=== PATIENT | male | born 1950 | race Caucasian/White ===

== ENCOUNTER 2018-07-14 09:51 | Observation (INO) ==
[2018-07-14] MEDS ORDERED: Oxymetazoline Nasal SPRAY BOTTLE NS ONE (10:27)
--- NOTE | 2018-07-14 10:45 | Emergency Department Note ---
Disposition Clinical Impression: Epistaxis Disposition: Admitted As Inpatient Condition: Good Referrals: Todd cAe DO [Primary Care Provider] - Forms: ED Satisfaction Letter Time of Disposition: 15:28 General Adult HPI - General Chief complaint: ED Epistaxis Stated complaint: epistaxis, "high bp" Time Seen by Provider: 07/14/18 10:01 Source: patient Mode of arrival: ambulatory Limitations: no limitations - History of Present Illness HPI Narrative: This is a 68-year-old male who has a long history of hypertension and who is on 5 antihypertensive medications who comes to emergency department stating that his blood pressure this morning was quite elevated. It normally runs in the 140s systolic and he found it was 203 systolic. He does not know why it would have been so high. About 2 weeks ago he was started on hydralazine, in addition to lisinopril, metoprolol, diltiazem, and hydrochlorothiazide, and states that that there was no improvement in his blood pressure with the added hydralazine. He also states that the diltiazem did not help with his blood pressure when it was added. He noted bleeding from the right nostril, and the bleeding is stopped after placement of tissue. Pain Scale: 0 - Related Data Home Medications Medication Instructions Recorded Confirmed Aspirin [Adult Aspirin] 81 mg PO DAILY 07/14/18 Diltiazem CD (24hr) [Cardizem CD] 240 mg PO DAILY 07/14/18 Hydrochlorothiazide [Microzide] 12.5 mg PO DAILY 07/14/18 Lisinopril [Zestril] 40 mg PO BID 07/14/18 Metoprolol Succinate [Toprol Xl] 100 mg PO DAILY 07/14/18 Potassium Citrate [Urocit-K] 40 meq PO DAILY 07/14/18 hydrALAZINE [HydrALAZINE] 25 mg PO BID 07/14/18 Allergies Allergy/AdvReac Type Severity Reaction Status Date / Time No Known Allergies Allergy Verified 07/14/18 10:45 All systems ED: reviewed and negative except as stated. Constitutional: Reports: other ENT ED: Reports: epistaxis Physical Exam - General Limitations: no limitations General appearance: alert, in no apparent distress - Head Head exam: atraumatic, normocephalic, normal inspection - ENT ENT exam: other (There is dried blood and moist tissue in the right naris) - Chest Chest inspection: Present: normal inspection, symmetric chest wall rise - Respiratory Respiratory exam: Present: normal lung sounds bilaterally - Cardiovascular Cardiovascular exam: Present: regular rate, normal rhythm, normal heart sounds - Abdominal Exam Abdominal exam: Present: soft, Non-Tender. Absent: tenderness, distention, guarding, rebound, rigidity - Extremities Exam Extremities exam: Present: normal inspection, full ROM. Absent: tenderness, pedal edema - Neurological Exam Neurological exam: Present: alert, oriented X3 - Psychiatric Psychiatric exam: Present: normal affect, normal mood - Skin Skin exam: Present: warm, dry, intact, normal color Course Course Narrative: This is a 68-year-old male who was interested in input about hypertension who may also have a continuing epistaxis on the right. Vital Signs Temperature 97.9 F 07/14/18 09:56 Pulse Rate 62 07/14/18 09:56 Respiratory Rate 18 07/14/18 09:56 Blood Pressure 196/98 07/14/18 09:56 O2 Sat by Pulse Oximetry 99 07/14/18 09:56 Temperature 97.9 F 07/14/18 10:48 Pulse Rate 52 07/14/18 12:56 Respiratory Rate 20 07/14/18 12:56 Blood Pressure 148/74 07/14/18 12:56 O2 Sat by Pulse Oximetry 100 07/14/18 12:56 Oxygen Delivery Oxygen Delivery Room Air Procedures - Epistaxis Control Consent Obtained: verbal consent Time Out Performed: Yes Nostril: left, bilateral Nose Prepped With: oxymetazoline Direct Inspection: unable to visualize Clots Removed by: blowing nose Cautery Used: silver nitrate Device Inserted: nasal tampon (1.5 cm bilateral) Patient Tolerated Procedure: well Medical Decision Making - [facility] Narrative Medical decision making narrative: This is a 68-year-old male who required bilateral nasal packing, an terior/posterior, for resolution of epistaxis. I discussed his case with Dr. Spnecer, who recommended admission to the hospitalist service and stated that she would see the patient on the floor. I discussed his case with the on-call hospitalist, who accepted him for admission. - Lab Data Result diagrams: 07/14/18 14:08 07/14/18 14:08 Lab Results 07/14/18 07/14/18 Range/Units 14:08 14:08 WBC 6.5 (4.3-11.1) K/mcL RBC 5.44 (4.19-5.50) M/mcL Hgb 15.8 (12.9-16.9) g/dL Hct 46.8 (37.5-50.1) % MCV 86.0 (83.0-100.0) fL MCH 29.0 (28.0-33.3) pg MCHC 33.8 (31.6-35.5) g/dL RDW 13.1 (11.5-14.5) % Plt Count 214 (140-400) K/mcL MPV 9.9 (9.4-12.4) fL Immature Gran % 0.0 (0-4) % Seg Neutrophils % 56.4 % Lymphocytes % 33.0 % Monocytes % 8.1 % Eosinophils % 1.7 % Basophils % 0.8 % Neutrophils # 3.7 (1.6-8.9) K/mcL Lymphocytes # 2.2 (0.6-4.6) K/mcL Monocytes # 0.5 (0.0-1.3) K/mcL Eosinophils # 0.1 (0.0-0.6) K/mcL Basophils # 0.1 (0.0-0.2) K/mcL Sodium 141 (136-145) mEq/L Potassium 3.7 (3.5-5.1) mEq/L Chloride 103 (98-107) mEq/L Carbon Dioxide 32 H (23-29) mEq/L BUN 14 (8-23) mg/dL Creatinine 0.97 (0.70-1.30) mg/dL Est GFR ( Amer) > 60 (> 60) Est GFR (Non-Af Amer) > 60 (> 60) BUN/Creatinine Ratio 14 (6-26) Glucose 113 H (70-105) mg/dL Calculated Osmolality 293 (280-300) Calcium 9.3 (8.6-10.3) mg/dL Critical Care Time Critical Care Time: No
[2018-07-14] MEDS ORDERED: Silver Nitrate Applicator 1 STICK..EA. TP ONE (12:03)
[2018-07-14 14:39] LABS: Basophils # 0.1 K/mcL (0.0-0.2); Basophils % 0.8 %; Eosinophils # 0.1 K/mcL (0.0-0.6); Eosinophils % 1.7 %; Hematocrit 46.8 % (37.5-50.1); Hemoglobin 15.8 g/dL (12.9-16.9); Lymphocytes # 2.2 K/mcL (0.6-4.6); Mean Corpuscular HGB Conc 33.8 g/dL (31.6-35.5); Mean Platelet Volume 9.9 fL (9.4-12.4); Monocytes # 0.5 K/mcL (0.0-1.3); Monocytes % 8.1 %; Neutrophils # 3.7 K/mcL (1.6-8.9); Platelet Count 214 K/mcL (140-400); Red Blood Count 5.44 M/mcL (4.19-5.50); Red Cell Distribution Width 13.1 % (11.5-14.5); Segmented Neutrophils % 56.4 %
[2018-07-14 14:41] LABS: BUN/Creatinine Ratio 14 (6-26); Blood Urea Nitrogen 14 mg/dL (8-23); Calcium 9.3 mg/dL (8.6-10.3); Carbon Dioxide 32 mEq/L (23-29); Chloride 103 mEq/L (98-107); Glucose 113 mg/dL (70-105); Osmolality,Calculated 293 (280-300); Potassium 3.7 mEq/L (3.5-5.1); Sodium 141 mEq/L (136-145); eGFR For Non-African Americans > 60 (> 60)
--- NOTE | 2018-07-14 15:54 | Internal Med History&Physical ---
Date of Encounter: 07/14/18 Time of Encounter: 15:51 Internal Medicine - H&P: HPI Chief complaint: Nosebleed Admitted From: Home Plans for Post Hospital Care: Home History of present illness: Mr. Bell is a 68 year old male with history of hypertension presented to the emergency department with complaint of nosebleed. As per patient he took a shower this morning and was putting on his clothes where he developed nose bleeding. The bleeding is continues. He denies clots associated with the bleeding and at first it was from the right right knee are however the left one started to bleed shortly after presentation to the emergency department. He denies being on any blood thinners but does take aspirin 81 mg daily. Has had one episode of epistaxis similar to this one 8 years ago which required specialized packing by ear nose and throat doctors. He reports that his bleeding is much less than what he had 8 years ago. He denies any facial trauma and cannot recall alleviating or aggravating factors. The bleeding started spontaneously and was not associated with any factors. She denies fever, chills, palpitations, shortness of breath, nausea, vomiting, diarrhea, leg swelling, calf tenderness, heat or cold intolerance, LOC, syncope, headache, vision changes, loss of function in her extremities, PND or orthopnea. While in the emergency department he required bilateral nasal packing. Dr. Kiah zamorano with ENT was consulted by the ED physician and recommended admission and will provide further recommendations. Past Med Surg Social Fam HX - Past Medical History Medical history: hypertension Psychiatric history: no psych history - Social History Smoking Status: Former smoker Smokeless Tobacco Status: No Alcohol use: occasionally Drug use: none Internal Medicine - H&P: Meds Aspirin [Adult Aspirin] 81 mg PO DAILY 07/14/18 [History] Diltiazem CD (24hr) [Cardizem CD] 240 mg PO DAILY 07/14/18 [History] Hydrochlorothiazide [Microzide] 12.5 mg PO DAILY 07/14/18 [History] Lisinopril [Zestril] 40 mg PO BID 07/14/18 [History] Metoprolol Succinate [Toprol Xl] 100 mg PO DAILY 07/14/18 [History] Potassium Citrate [Urocit-K] 40 meq PO DAILY 07/14/18 [History] hydrALAZINE [HydrALAZINE] 25 mg PO BID 07/14/18 [History] Allergy/AdvReac Type Severity Reaction Status Date / Time No Known Allergies Allergy Verified 07/14/18 10:45 All Systems PM: A 10-system review of systems was performed and is negative for pertinent findings except as documented above in the HPI. - Constitutional Vitals: Temp Pulse Resp BP Pulse Ox 97.9 F 54 20 136/117 98 07/14/18 10:48 07/14/18 15:43 07/14/18 15:43 07/14/18 15:43 07/14/18 15:43 Exam: General: Patient is alert, oriented, in mild distress, can speak in full sentences Head: atraumatic, normocephalic, Eye: normal appearance, PERRL, no scleral icterus, no conjunctival injection ENT: Bilateral nasal packing that are bloodstained with bright red blood. No clots in visualized throat Neck: normal inspection, trachea midline, full ROM, no carotid bruits Chest: normal inspection, symmetric chest rise Respiratory: Good respiratory effort. Bilateral breath sounds are clear without wheezing, crackles, or rhonchi. Cardiovascular: Regular rate and rhythm. s1 and s2 No clicks, rubs, gallops, or murmors. Abdomen: Bowel sounds present normoactive x-4 quadrants. Abdomen is soft, nondistended. no Epigastric tenderness. No guarding or rebound. No o rganomegaly noted, obese musculoskeletal: Spontaneously moving all extremities. no edema, no calf te nderness Skin: warm, dry, intact. Neuro: Alert and oriented x4. Sensation light touch intact. Cranial nerves 2- 12 is intact. No focal deficits Psych: Patient's affect is normal Internal Med - H&P Results - Labs CBC & Chem 7: 07/14/18 14:08 07/14/18 14:08 Labs: Short CBC 07/14/18 Range/Units 14:08 WBC 6.5 (4.3-11.1) K/mcL Hgb 15.8 (12.9-16.9) g/dL Hct 46.8 (37.5-50.1) % Plt Count 214 (140-400) K/mcL Neutrophils # 3.7 (1.6-8.9) K/mcL BMP 07/14/18 14:08 Sodium 141 Potassium 3.7 Chloride 103 Carbon Dioxide 32 H BUN 14 Creatinine 0.97 Glucose 113 H Calcium 9.3 - Assessment and plan (1) Epistaxis Current Visit: Yes Status: Acute Assessment and plan: Bilateral epistaxis which was packed in the emergency department- Afrin was given. ENT was consulted by the ED physician will follow recommendations Will get CT head without contrast now Follow CBC every 8 hours and transfuse below 7 I discussed with the patient that if he does develop increase in bleeding airway might get compromised and he agrees with intubation if he cannot protect his airway Avoid antiplatelets, anticoagulations, NSAIDs Type and cross stat (2) Hypertension Current Visit: Yes Status: Acute Assessment and plan: On cardizem and metoprolol for hypertension and is currently bradycardic- will discontinue continue with HCTZ, will change metoprolol to coreg continue with lisinopril consider amlodipine if still not controlled Qualifiers: Hypertension type: essential hypertension Qualified Code(s): I10 - Essential (primary) hypertension (3) Obese Current Visit: Yes Status: Acute Assessment and plan: nutrition consult BMI 38.5 Qualifiers: Obesity type: unspecified obesity type Body mass index: BMI 38.0-38.9 Qualified Code(s): E66.9 - Obesity, unspecified; Z68.38 - Body mass index (BMI) 38.0-38.9, adult (4) DVT prophylaxis Current Visit: Yes Status: Acute Assessment and plan: scds - Time Spent With Patient Total time spent is greater than 50% in coordination of care (as documented) at patient's floor/unit and/or counseling patient:
[2018-07-14] MEDS ORDERED: Naloxone 0.4 MG/ML INJ IVP PRN (16:12)
[2018-07-14 17:00] LABS: Basophils # 0.1 K/mcL (0.0-0.2); Basophils % 0.7 %; Eosinophils # 0.1 K/mcL (0.0-0.6); Hemoglobin 15.7 g/dL (12.9-16.9); Immature Granulocytes % 0.1 % (0-4); Lymphocytes # 1.7 K/mcL (0.6-4.6); Lymphocytes % 23.3 %; Mean Corpuscular HGB Conc 33.4 g/dL (31.6-35.5); Mean Corpuscular Hemoglobin 28.7 pg (28.0-33.3); Mean Corpuscular Volume 85.9 fL (83.0-100.0); Mean Platelet Volume 9.9 fL (9.4-12.4); Monocytes # 0.5 K/mcL (0.0-1.3); Monocytes % 6.5 %; Neutrophils # 4.9 K/mcL (1.6-8.9); Platelet Count 214 K/mcL (140-400); Red Blood Count 5.47 M/mcL (4.19-5.50); Segmented Neutrophils % 68.4 %
--- NOTE | 2018-07-14 17:17 | ENT - Consult Note ---
<Nithya Choi - Last Filed: 07/14/18 18:24> Date of Encounter: 07/14/18 Time of Encounter: 17:10 Assessment and Plan (1) Epistaxis Current Visit: Yes Status: Acute Patient seen and examined by this provider and Dr. Rai ENT physician. Patient with bilateral rapid rhino rocket nasal packing in place. Very subtle oozing noted around anterior portion of packing in right nare. Right nasal pack was repositioned and balloon was filled with saline solution. Left nasal pack was removed. No areas of active bleeding noted to left nare after packing removal. No bleeding or clots were noted to the oropharynx after reposition of right pack and removal of left. Right nasal packing to remain in place for 72 hours. Recommend patient to start oral antibiotic due to packing placement. Patient's episode of epistaxis likely related to elevated blood pressure. will reassess patient tomorrow at bedside. All questions answered. (2) Hypertension Current Visit: Yes Status: Acute Recommend optimization and control of BP to aid in decreasing episodes of epistaxis. Qualifiers: Hypertension type: essential hypertension Qualified Code(s): I10 - Essential (primary) hypertension History of Present Illness Consult date: 07/14/18 Reason for ENT Consult: epistaxis Requesting physician: Tyson Snow History of present illness: Patient is 68-year-old male with past medical history of hypertension, who presented to ED today with complaint of nosebleed. Patient reports bleeding from right Nare began this morning after patient had showered. Patient reports the episode of epistaxis continued until he was seen and packing placed in the ED. He denies any oral anti-coagulation, but does report that he currently takes aspirin 81 mg daily. Has had one episode of epistaxis similar to this one 8 years ago which required nasal packing. He denies any facial trauma and cannot recall alleviating or aggravating factors. However, does report recently elevated blood pressures with systolics ranging from 180-200. Past Med Surg Social Fam HX - Past Medical History Medical history: hypertension Psychiatric history: no psych history - Social History Smoking Status: Former smoker Smokeless Tobacco Status: No Alcohol use: occasionally Drug use: none Medications and Allergies Aspirin [Adult Aspirin] 81 mg PO DAILY 07/14/18 [History] Diltiazem CD (24hr) [Cardizem CD] 240 mg PO DAILY 07/14/18 [History] Hydrochlorothiazide [Microzide] 12.5 mg PO DAILY 07/14/18 [History] Lisinopril [Zestril] 40 mg PO BID 07/14/18 [History] Metoprolol Succinate [Toprol Xl] 100 mg PO DAILY 07/14/18 [History] Potassium Citrate [Urocit-K] 40 meq PO DAILY 07/14/18 [History] hydrALAZINE [HydrALAZINE] 25 mg PO BID 07/14/18 [History] Allergy/AdvReac Type Severity Reaction Status Date / Time No Known Allergies Allergy Verified 07/14/18 10:45 ENT - ROS - EENT Nose, mouth and throat: epistaxis ENT Exam Initial Vital Signs Temp Pulse Resp BP Pulse Ox 97.9 F 62 18 196/98 99 07/14/18 09:56 07/14/18 09:56 07/14/18 09:56 07/14/18 09:56 07/14/18 09:56 - General physical appearance well developed, well nourished, no distress - Eyes PERRL, normal ocular movement - ENT CN 2-12 grossly intact, Other (EARS: EACs clear bilaterally. TMs normal bilaterally. Oral: Teeth in good repair, tongue midline, uvula midline, no acti ve bleeding or clots noted to oropharynx after intervention. NOSE: Bilateral Rhino Rocket nasal packing in place with inflated balloons. Left packing removed. Left Nare without active bleeding or oozing noted. Right nasal packing with slight amount of oozing around anterior portion of the pack which stopped after repositioning pack. ) - Neck no masses, trachea midline, no lymphadectomy - Respiratory normal expansion, normal respiratory effort - Neurologic CN 2-12 grossly intact, normal coordination, normal sensation - Psychiatric oriented to time, oriented to person, oriented to place Exam Initial Vital Signs Temp Pulse Resp BP Pulse Ox 97.9 F 62 18 196/98 99 07/14/18 09:56 07/14/18 09:56 07/14/18 09:56 07/14/18 09:56 07/14/18 09:56 Results - Labs 07/14/18 16:39 07/14/18 14:08 Abnormal lab results Carbon Dioxide 32 mEq/L (23-29) H 07/14/18 14:08 Glucose 113 mg/dL (70-105) H 07/14/18 14:08 Diabetes panel 07/14/18 Range/Units 14:08 Sodium 141 (136-145) mEq/L Potassium 3.7 (3.5-5.1) mEq/L Chloride 103 (98-107) mEq/L Carbon Dioxide 32 H (23-29) mEq/L BUN 14 (8-23) mg/dL Creatinine 0.97 (0.70-1.30) mg/dL Glucose 113 H (70-105) mg/dL Calcium 9.3 (8.6-10.3) mg/dL Calcium panel 07/14/18 Range/Units 14:08 Calcium 9.3 (8.6-10.3) mg/dL Pituitary panel 07/14/18 Range/Units 14:08 Sodium 141 (136-145) mEq/L Potassium 3.7 (3.5-5.1) mEq/L Chloride 103 (98-107) mEq/L Carbon Dioxide 32 H (23-29) mEq/L BUN 14 (8-23) mg/dL Creatinine 0.97 (0.70-1.30) mg/dL Glucose 113 H (70-105) mg/dL Calcium 9.3 (8.6-10.3) mg/dL Adrenal panel 07/14/18 Range/Units 14:08 Sodium 141 (136-145) mEq/L Potassium 3.7 (3.5-5.1) mEq/L Chloride 103 (98-107) mEq/L Carbon Dioxide 32 H (23-29) mEq/L BUN 14 (8-23) mg/dL Creatinine 0.97 (0.70-1.30) mg/dL Glucose 113 H (70-105) mg/dL Calcium 9.3 (8.6-10.3) mg/dL All other labs normal. Consult Discharge Plan - Plan Referrals: Todd Ace DO [Primary Care Provider] - <Zakiya Rai - Last Filed: 07/15/18 11:15> Date of Encounter: 07/15/18 Assessment and Plan (1) Epistaxis Current Visit: Yes Status: Acute (2) Hypertension Current Visit: Yes Status: Acute Qualifiers: Hypertension type: essential hypertension Qualified Code(s): I10 - Essential (primary) hypertension (3) Hypertensive urgency Current Visit: Yes Status: Acute Recommend continued optimization of the patient's blood pressure by the primary team. If his blood pressures controlled and he does not have any significant bleeding patient may be discharged home with balloon in place to follow up to have bleeding and removed Saturday (4) Acute posterior epistaxis Current Visit: Yes Status: Acute Patient with acute posterior epistaxis on the right side related to his hypertensive episode. Patient did have one episode similar to this about 8 years ago. Balloon was placed in the ED which required readjustment on the floor by myself to help manage the bleeding. We were able to remove the balloon from the left side and only leave the balloon in the right and increase the amount of fluid within the right balloon. Patient with hypertensive urgency as he became very symptomatic from his hypertensive episode where his systolic blood pressure was in the 200s and diastolic in the 100s. Patient will continue to bleed around any packing that was placed in the nose if this is not well controlled. It is very important to improve his blood pressure to stop any bleeding. Nasal packing needs to be in place for at least 72 hours after significant bleeding has stopped. If patient continues to bleed around the packing even know his blood pressure stabilized, he may need to go to the operating room for further evaluation endoscopic control of the bleeding but this is unlikely if his blood pressure is controlled and remained stable. ENT Exam Initial Vital Signs Temp Pulse Resp BP Pulse Ox 97.9 F 62 18 196/98 99 07/14/18 09:56 07/14/18 09:56 07/14/18 09:56 07/14/18 09:56 07/14/18 09:56 Exam Initial Vital Signs Temp Pulse Resp BP Pulse Ox 97.9 F 62 18 196/98 99 07/14/18 09:56 07/14/18 09:56 07/14/18 09:56 07/14/18 09:56 07/14/18 09:56 Results - Labs 07/15/18 05:45 07/15/18 05:45 Abnormal lab results PT 12.7 Seconds (9.4-12.1) H 07/15/18 05:45 Potassium 3.1 mEq/L (3.5-5.1) L 07/15/18 05:45 Glucose 141 mg/dL (70-105) H 07/15/18 05:45 Total Bilirubin 1.3 mg/dL (0.3-1.0) H 07/15/18 05:45 Diabetes panel 07/14/18 07/15/18 Range/Units 14:08 05:45 Sodium 141 138 (136-145) mEq/L Potassium 3.7 3.1 L (3.5-5.1) mEq/L Chloride 103 103 (98-107) mEq/L Carbon Dioxide 32 H 26 (23-29) mEq/L BUN 14 13 (8-23) mg/dL Creatinine 0.97 0.81 (0.70-1.30) mg/dL Glucose 113 H 141 H (70-105) mg/dL Calcium 9.3 8.9 (8.6-10.3) mg/dL AST 16 (13-39) Units/L ALT 17 (7-52) Units/L Alkaline Phosphatase 75 (34-104) Units/L Albumin 4.2 (3.5-5.7) g/dL Calcium panel 07/14/18 07/15/18 Range/Units 14:08 05:45 Calcium 9.3 8.9 (8.6-10.3) mg/dL Albumin 4.2 (3.5-5.7) g/dL Pituitary panel 07/14/18 07/15/18 Range/Units 14:08 05:45 Sodium 141 138 (136-145) mEq/L Potassium 3.7 3.1 L (3.5-5.1) mEq/L Chloride 103 103 (98-107) mEq/L Carbon Dioxide 32 H 26 (23-29) mEq/L BUN 14 13 (8-23) mg/dL Creatinine 0.97 0.81 (0.70-1.30) mg/dL Glucose 113 H 141 H (70-105) mg/dL Calcium 9.3 8.9 (8.6-10.3) mg/dL Adrenal panel 07/14/18 07/15/18 Range/Units 14:08 05:45 Sodium 141 138 (136-145) mEq/L Potassium 3.7 3.1 L (3.5-5.1) mEq/L Chloride 103 103 (98-107) mEq/L Carbon Dioxide 32 H 26 (23-29) mEq/L BUN 14 13 (8-23) mg/dL Creatinine 0.97 0.81 (0.70-1.30) mg/dL Glucose 113 H 141 H (70-105) mg/dL Calcium 9.3 8.9 (8.6-10.3) mg/dL Total Bilirubin 1.3 H (0.3-1.0) mg/dL AST 16 (13-39) Units/L ALT 17 (7-52) Units/L Alkaline Phosphatase 75 (34-104) Units/L Albumin 4.2 (3.5-5.7) g/dL All other labs normal. - Attending Attestation The history, physical exam, and medical decision making was performed by myself in conjunction with the nurse practioner who saw the patient at the bedside. I was physically present and actively performed the examination and medical decision making. I have verified the accuracy of the Nurse practioners documentation with regards to communicating my history, physical exam findings, and medical decision making.
[2018-07-14] MEDS ORDERED: amLODIPine 5 MG TABLET PO ONE (20:30)
[2018-07-14] MEDS ORDERED: Acetaminophen IV 1,000 MG/100 ML INFUS..BTL IVPB ONE (23:53)
[2018-07-15] MEDS ORDERED: *HR* LORazepam 2 MG/ML VIAL IVP ONE (00:45)
[2018-07-15] MEDS: Ampicillin/Sulbactam 3,000 MG in 0.9 % Sodium Chloride Mini Bag 100 ML IVPB SCH ×3 (05:49→13:45)
[2018-07-15] MEDS ORDERED: Acetaminophen 325 MG TABLET PO PRN (06:01)
[2018-07-15 06:02] LABS: Hematocrit 44.1 % (37.5-50.1); Hemoglobin 15.3 g/dL (12.9-16.9); Mean Corpuscular HGB Conc 34.7 g/dL (31.6-35.5); Mean Corpuscular Hemoglobin 29.6 pg (28.0-33.3); Mean Corpuscular Volume 85.3 fL (83.0-100.0); Platelet Count 223 K/mcL (140-400); Red Blood Count 5.17 M/mcL (4.19-5.50); Red Cell Distribution Width 13.1 % (11.5-14.5)
[2018-07-15 06:09] LABS: INR 1.1; Prothrombin Time 12.7 Seconds (9.4-12.1)
[2018-07-15 06:22] LABS: Alanine Aminotransferase 17 Units/L (7-52); Albumin 4.2 g/dL (3.5-5.7); Albumin/Globulin Ratio 1.5 (1.1-2.2); Alkaline Phosphatase 75 Units/L (34-104); Aspartate Amino Transferase 16 Units/L (13-39); BUN/Creatinine Ratio 16 (6-26); Bilirubin,Total 1.3 mg/dL (0.3-1.0); Blood Urea Nitrogen 13 mg/dL (8-23); Calcium 8.9 mg/dL (8.6-10.3); Carbon Dioxide 26 mEq/L (23-29); Chloride 103 mEq/L (98-107); Globulin 2.8 g/dL (2.4-3.5); Glucose 141 mg/dL (70-105); Osmolality,Calculated 288 (280-300); Potassium 3.1 mEq/L (3.5-5.1); Sodium 138 mEq/L (136-145); eGFR For Non-African Americans > 60 (> 60)
[2018-07-15] MEDS: *HR* HYDROcodone/Acet 7.5/325 mg TABLET PO PRN ×3 (06:49→22:45)
[2018-07-15] MEDS ORDERED: hydroCHLOROthiazide 25 MG TABLET PO SCH (09:00)
[2018-07-15] MEDS: Furosemide 40 MG TABLET PO SCH (09:22)
[2018-07-15] MEDS: Lisinopril 20 MG TABLET PO SCH (09:22)
--- NOTE | 2018-07-15 11:29 | ENT - Progress Note ---
Date of Encounter: 07/15/18 Time of Encounter: 11:29 - Assessment and Plan (1) Epistaxis Current Visit: Yes Status: Acute Patient seen and examined at bedside today. Patient denies any further episodes of bleeding since repositioning of nasal packing last night. Patient with no active bleeding or oozing noted today. Nasal packing to remain in place for 72 hours after initial time of placement. Patient may be transitioned to oral antibiotic for prophylaxis due to packing placement at this time. If patient meets criteria for discharge from primary care team perspective patient may follow up outpatient in ENT office for packing removal. All questions answered. (2) Hypertension Current Visit: Yes Status: Acute Recommend optimization of blood pressure to aid in decreasing nasal bleeds. Qualifiers: Hypertension type: essential hypertension Qualified Code(s): I10 - Essential (primary) hypertension Subjective Patient reports: no new complaints, other (Patient denies any further episodes of bleeding) Objective Initial Vital Signs Temp Pulse Resp BP Pulse Ox 97.9 F 62 18 196/98 99 07/14/18 09:56 07/14/18 09:56 07/14/18 09:56 07/14/18 09:56 07/14/18 09:56 - General physical appearance well developed, well nourished, no distress - Eyes PERRL, normal ocular movement - ENT CN 2-12 grossly intact, Other (Nose: Rapid Rhino rocket nasal packing in place in right Nare with balloon inflated, no bleeding or oozing around nasal packing noted. Left Nare without active bleeding or oozing. Oropharynx: Small amount of dried blood noted to posterior oropharynx, no active bleeding or blood clots noted.) - Neck no masses, trachea midline, no lymphadectomy - Respiratory normal expansion, normal respiratory effort - Labs 07/15/18 05:45 07/15/18 05:45 Diabetes panel 07/14/18 07/15/18 Range/Units 14:08 05:45 Sodium 141 138 (136-145) mEq/L Potassium 3.7 3.1 L (3.5-5.1) mEq/L Chloride 103 103 (98-107) mEq/L Carbon Dioxide 32 H 26 (23-29) mEq/L BUN 14 13 (8-23) mg/dL Creatinine 0.97 0.81 (0.70-1.30) mg/dL Glucose 113 H 141 H (70-105) mg/dL Calcium 9.3 8.9 (8.6-10.3) mg/dL AST 16 (13-39) Units/L ALT 17 (7-52) Units/L Alkaline Phosphatase 75 (34-104) Units/L Albumin 4.2 (3.5-5.7) g/dL Calcium panel 07/14/18 07/15/18 Range/Units 14:08 05:45 Calcium 9.3 8.9 (8.6-10.3) mg/dL Albumin 4.2 (3.5-5.7) g/dL Pituitary panel 07/14/18 07/15/18 Range/Units 14:08 05:45 Sodium 141 138 (136-145) mEq/L Potassium 3.7 3.1 L (3.5-5.1) mEq/L Chloride 103 103 (98-107) mEq/L Carbon Dioxide 32 H 26 (23-29) mEq/L BUN 14 13 (8-23) mg/dL Creatinine 0.97 0.81 (0.70-1.30) mg/dL Glucose 113 H 141 H (70-105) mg/dL Calcium 9.3 8.9 (8.6-10.3) mg/dL Adrenal panel 07/14/18 07/15/18 Range/Units 14:08 05:45 Sodium 141 138 (136-145) mEq/L Potassium 3.7 3.1 L (3.5-5.1) mEq/L Chloride 103 103 (98-107) mEq/L Carbon Dioxide 32 H 26 (23-29) mEq/L BUN 14 13 (8-23) mg/dL Creatinine 0.97 0.81 (0.70-1.30) mg/dL Glucose 113 H 141 H (70-105) mg/dL Calcium 9.3 8.9 (8.6-10.3) mg/dL Total Bilirubin 1.3 H (0.3-1.0) mg/dL AST 16 (13-39) Units/L ALT 17 (7-52) Units/L Alkaline Phosphatase 75 (34-104) Units/L Albumin 4.2 (3.5-5.7) g/dL Consult Discharge Plan - Plan Referrals: Todd Ace DO [Primary Care Provider] -
--- NOTE | 2018-07-15 14:36 | Internal Med Progress Note ---
Hospitalist Progress Note - Encounter Date of Encounter: 07/15/18 Time of Encounter: 08:00 - Subjective Interval History: arlen was seen and examined at bedside reports that he believe that the bleeding has stopped. has no complaints at this time, tolerating PO diet. all questions answered she denies fever, chills, CP, SOB, cough, palpitations, N/v/D - Exam Vitals: Temp Pulse Resp BP Pulse Ox 98.4 F 61 15 167/88 96 07/15/18 07:11 07/15/18 08:06 07/15/18 08:06 07/15/18 08:06 07/15/18 08:06 Exam: General: Patient is alert, oriented, in mild distress, can speak in full sentences Head: atraumatic, normocephalic, Eye: normal appearance, PERRL, no scleral icterus, no conjunctival injection ENT: Bilateral nasal packing that are bloodstained with bright red blood. No clots in visualized throat Neck: normal inspection, trachea midline, full ROM, no carotid bruits Chest: normal inspection, symmetric chest rise Respiratory: Good respiratory effort. Bilateral breath sounds are clear without wheezing, crackles, or rhonchi. Cardiovascular: Regular rate and rhythm. s1 and s2 No clicks, rubs, gallops, or murmors. Abdomen: Bowel sounds present normoactive x-4 quadrants. Abdomen is soft, nondistended. no Epigastric tenderness. No guarding or rebound. No organomegaly noted, obese musculoskeletal: Spontaneously moving all extremities. no edema, no calf tenderness Skin: warm, dry, intact. Neuro: Alert and oriented x4. Sensation light touch intact. Cranial nerves 2- 12 is intact. No focal deficits Psych: Patient's affect is normal - Assessment and Plan (1) Epistaxis Current Visit: Yes Status: Acute Assessment and Plan: Bilateral epistaxis which was packed in the emergency department- Afrin was given. Most likely secondary to uncontrolled blood pressure ENT was consulted by the ED physician recommendations appreciated CBC followed and stable continue to monitor H&H Avoid antiplatelets, anticoagulations, NSAIDs On Augmentin by mouth (2) Hypertension Current Visit: Yes Status: Acute Assessment and Plan: was On cardizem and metoprolol for hypertension and is currently bradycardic- will discontinue HCTZ changed to lasix 40 mg daily on lisinopril 40 mg daily contue with coreg 6.25 BID on amlodipine 10 mg daily will follow BP and continue to adjust BP medications (3) Obese Current Visit: Yes Status: Acute Assessment and Plan: nutrition consult BMI 38.5 (4) DVT prophylaxis Current Visit: Yes Status: Acute Assessment and Plan: scds - Time Spent with Patient Total time spent is greater than 50% in coordination of care (as documented) at patient's floor/unit and/or counseling patient: Internal Medicine: Result - Labs CBC & Chem 7: 07/15/18 05:45 07/15/18 05:45 Labs: Short CBC 07/14/18 07/14/18 07/15/18 Range/Units 14:08 16:39 05:45 WBC 6.5 7.2 7.4 (4.3-11.1) K/mcL Hgb 15.8 15.7 15.3 (12.9-16.9) g/dL Hct 46.8 47.0 44.1 (37.5-50.1) % Plt Count 214 214 223 (140-400) K/mcL Neutrophils # 3.7 4.9 (1.6-8.9) K/mcL BMP 07/14/18 07/15/18 14:08 05:45 Sodium 141 138 Potassium 3.7 3.1 L Chloride 103 103 Carbon Dioxide 32 H 26 BUN 14 13 Creatinine 0.97 0.81 Glucose 113 H 141 H Calcium 9.3 8.9 Liver Function 07/15/18 Range/Units 05:45 Total Bilirubin 1.3 H (0.3-1.0) mg/dL AST 16 (13-39) Units/L ALT 17 (7-52) Units/L Alkaline Phosphatase 75 (34-104) Units/L Albumin 4.2 (3.5-5.7) g/dL - ABG Interpretation ABG results: PT/INR, D-dimer PT 12.7 Seconds (9.4-12.1) H 07/15/18 05:45 - Impressions Impressions Head CT 07/14/18 16:55 IMPRESSION: No acute intracranial abnormality. Diffuse atrophic changes with findings suggesting chronic microvascular ischemia Fluid in the right maxillary sinus D/ / Phoenix Lemus MD / Phoenix Lemus MD Interpreting Provider: Phoenix Lemus MD Consult Discharge Plan - Plan Referrals: Todd Aec DO [Primary Care Provider] - (2) Hypertension Qualifiers: Hypertension type: essential hypertension Qualified Code(s): I10 - Essential (primary) hypertension (3) Obese Qualifiers: Obesity type: unspecified obesity type Body mass index: BMI 38.0-38.9 Qualified Code(s): E66.9 - Obesity, unspecified; Z68.38 - Body mass index (BMI) 38.0-38.9, adult
[2018-07-15] MEDS ORDERED: amLODIPine 5 MG TABLET PO ONE (18:04)
[2018-07-16 06:27] LABS: Basophils # 0.1 K/mcL (0.0-0.2); Basophils % 0.6 %; Eosinophils # 0.1 K/mcL (0.0-0.6); Eosinophils % 1.1 %; Hematocrit 43.6 % (37.5-50.1); Immature Granulocytes % 0.2 % (0-4); Lymphocytes # 2.2 K/mcL (0.6-4.6); Lymphocytes % 26.7 %; Mean Corpuscular HGB Conc 34.4 g/dL (31.6-35.5); Mean Corpuscular Hemoglobin 29.4 pg (28.0-33.3); Mean Corpuscular Volume 85.3 fL (83.0-100.0); Mean Platelet Volume 10.1 fL (9.4-12.4); Monocytes # 0.8 K/mcL (0.0-1.3); Monocytes % 9.6 %; Neutrophils # 5.2 K/mcL (1.6-8.9); Platelet Count 213 K/mcL (140-400); Red Blood Count 5.11 M/mcL (4.19-5.50); Red Cell Distribution Width 13.2 % (11.5-14.5); Segmented Neutrophils % 61.8 %
[2018-07-16] MEDS ORDERED: NIFEdipine XL (24 HR) 60 MG TAB.ER.24 PO SCH ×2 (07:00→09:00)
[2018-07-16 07:53] LABS: BUN/Creatinine Ratio 16 (6-26); Blood Urea Nitrogen 14 mg/dL (8-23); Carbon Dioxide 27 mEq/L (23-29); Chloride 105 mEq/L (98-107); Glucose 128 mg/dL (70-105); Osmolality,Calculated 290 (280-300); Potassium 3.1 mEq/L (3.5-5.1); Sodium 139 mEq/L (136-145); eGFR For Non-African Americans > 60 (> 60)
[2018-07-16] MEDS: Furosemide 40 MG TABLET PO SCH (07:57)
[2018-07-16] MEDS: Lisinopril 20 MG TABLET PO SCH (07:57)
[2018-07-16] MEDS: *HR* HYDROcodone/Acet 7.5/325 mg TABLET PO PRN ×2 (08:02→14:16)
[2018-07-16] MEDS ORDERED: amLODIPine 5 MG TABLET PO SCH (09:00)
--- NOTE | 2018-07-16 14:01 | Discharge Summary ---
- NOTES TO OUTPATIENT PROVIDER Notes to Outpatient Provider: follow up BP log and adjust medications accordingly. Orders not resulted at time of discharge: Pending orders 07/17/18 04:00 BMP [Basic Metabolic Panel] AM 0400 CBC no Diff [Complete Blood Count w/o Diff] [HEME] AM 0400 07/18/18 04:00 BMP [Basic Metabolic Panel] AM 0400 CBC no Diff [Complete Blood Count w/o Diff] [HEME] AM 0400 Date of Encounter: 07/16/18 Time of Encounter: 14:45 - Discharge Diagnosis (1) Epistaxis Priority: Primary Status: Acute (2) Hypertension Priority: Secondary Status: Acute Qualifiers: Hypertension type: essential hypertension Qualified Code(s): I10 - Essential (primary) hypertension (3) Obese Priority: Secondary Status: Acute Qualifiers: Obesity type: unspecified obesity type Body mass index: BMI 38.0-38.9 Qualified Code(s): E66.9 - Obesity, unspecified; Z68.38 - Body mass index (BMI) 38.0-38.9, adult (4) Hypertensive urgency Priority: Secondary Status: Acute (5) DVT prophylaxis Priority: Secondary Status: Acute Hospital course: Mr. Bell is a 68 year old male hypertension presented to the emergency department with complaint of nosebleed. As per patient he took a shower this morning and was putting on his clothes where he developed nose bleeding. The bleeding is continues. He denies clots associated with the bleeding and at first it was from the right right knee are however the left one started to bleed shortly after presentation to the emergency department. He denies being on any blood thinners but does take aspirin 81 mg daily. Has had one episode of epistaxis similar to this one 8 years ago which required specialized packing by ear nose and throat doctors. He reports that his bleeding is much less than what he had 8 years ago. He denies any facial trauma and cannot recall alleviating or aggravating factors. The bleeding started spontaneously and was not associated with any factors. She denies fever, chills, palpitations, shortness of breath, nausea, vomiting, diarrhea, leg swelling, calf tenderness, heat or cold intolerance, LOC, syncope, headache, vision changes, loss of function in her extremities, PND or orthopnea. While in the emergency department he required bilateral nasal packing. Dr. Spencer with ENT was consulted by the ED physician and recommended admission and will provide further recommendations. his epistaxis stopped by ENT interventions, he was started on Abx as he had nasal packing. his BP was unctrolled and extremily elevated with SBP ranging from 170- 205 and required PRN IV medication intervention for control. his home medications were reconciled and adjusted with control of his blood pressure. I discused new medication changes with the patient and he understands, blood pressure log was also provided for the patient along with Rx for new BP monitoring kit. he was given insutruction to measure his BP in the [facility] adn call His PCP if his BP is <90/60. he understands he is to follow with ENT as OP o SaturdayJul 18 at 830 AM to remove the nasal packing. Abx were prescribed for him as e has nasal packing. he was instructed to hold off of his ASA 81 mg until he follows up with ENT on jul 18. He understands. Nursing staff aware to make PCP appointment he was counseled on diet, exercise and weight loss Discharge discussed with: patient, nurse, big machine consultant - Time Spent with Patient Total time spent providing and/or coordinating discharge services: Less than 30 minutes - Discharge Medications Prescriptions: Amoxicillin/Clavulanate [Augmentin] 875 mg PO BIDWM 4 Days #8 tablet Blood Pressure Test Kit [Blood Pressure Kit] 1 each MC BID #1 kit Carvedilol [Coreg] 6.25 mg PO BIDWM 30 Days #60 tablet Furosemide [Lasix] 40 mg PO DAILY #30 tablet Lisinopril [Zestril] 40 mg PO DAILY #30 tablet NIFEdipine XL (24 HR) [Procardia XL] 60 mg PO Q24H #30 tab.er.24 Home Medications: Aspirin [Adult Aspirin] 81 mg PO DAILY 07/14/18 [History] Potassium Citrate [Urocit-K] 40 meq PO DAILY 07/14/18 [History] Amoxicillin/Clavulanate [Augmentin] 875 mg PO BIDWM 4 Days #8 tablet 07/16/18 [Rx] Blood Pressure Test Kit [Blood Pressure Kit] 1 each MC BID #1 kit 07/16/18 [Rx] Carvedilol [Coreg] 6.25 mg PO BIDWM 30 Days #60 tablet 07/16/18 [Rx] Furosemide [Lasix] 40 mg PO DAILY #30 tablet 07/16/18 [Rx] Lisinopril [Zestril] 40 mg PO DAILY #30 tablet 07/16/18 [Rx] NIFEdipine XL (24 HR) [Procardia XL] 60 mg PO Q24H #30 tab.er.24 07/16/18 [Rx] Allergies/Adverse Reactions: Allergy/AdvReac Type Severity Reaction Status Date / Time No Known Allergies Allergy Verified 07/14/18 10:45 Date of admission: 07/14/18 15:50 Primary care physician: Todd Ace DO Consults: 07/14/18 15:25 Consult to ENT [CONS] Stat Consulting Provider: ENT Yoanna Reason for Consult: Bilateral nasal packing for epistaxis, discussed with Dr. Spencer Time Notified: 15:00 Call Completed: Yes - Constitutional Vitals: Temp Pulse Resp BP Pulse Ox 97.8 F 82 16 139/78 94 07/16/18 11:16 07/16/18 13:22 07/16/18 13:22 07/16/18 13:22 07/16/18 11:16 Exam: General: Patient is alert, oriented, in mild distress, can speak in full sentences Head: atraumatic, normocephalic, Eye: normal appearance, PERRL, no scleral icterus, no conjunctival injection ENT: right nasal packing that is stained with dried blood. No clots in visualized throat Neck: normal inspection, trachea midline, full ROM, no carotid bruits Chest: normal inspection, symmetric chest rise Respiratory: Good respiratory effort. Bilateral breath sounds are clear without wheezing, crackles, or rhonchi. Cardiovascular: Regular rate and rhythm. s1 and s2 No clicks, rubs, gallops, or murmors. Abdomen: Bowel sounds present normoactive x-4 quadrants. Abdomen is soft, nondistended. no Epigastric tenderness. No guarding or rebound. No organomegaly noted, obese musculoskeletal: Spontaneously moving all extremities. no edema, no calf tenderness Skin: warm, dry, intact. Neuro: Alert and oriented x4. Sensation light touch intact. Cranial nerves 2-12 is intact. No focal deficits Psych: Patient's affect is normal - Patient Status Disposition: Home, Self-Care Condition: Good Functional capacity at discharge: independent ambulation Overall status at discharge: patient is progressing back to baseline - Discharge Instructions Follow Up With: [facility] [Outside] - 07/18/18 1:30 pm Nithya Choi CNP [Advanced Practice Nurse] - 07/18/18 8:30 am - Diet and Activity Activity: increase activity as tolerated Diet: low salt diet
[2018-07-16 14:59] VITALS: BP 160/84
== END 2018-07-16 16:32 | disposition home or self-care (01) ==
LOC: EMEROOARM 09:51 → 3ANU 09:51
PROVIDERS: ADMIT Internal Medicine; ATTEND Internal Medicine

== ENCOUNTER 2020-06-09 07:17 | Inpatient (IN) ==
[2020-06-09] MEDS ORDERED: *HR* Midazolam HCl 2 MG/2 ML VIAL ONE (07:53)
[2020-06-09] MEDS ORDERED: *HR* FentaNYL (PF) 100 MCG/2 ML VIAL ONE (07:54)
[2020-06-09] MEDS ORDERED: Heparin 1,000 UNITS/500 mL 500 ML ONE ×2 (09:31→09:56)
[2020-06-09] MEDS ORDERED: *HR* Heparin 10,000 UNIT/10 ML VIAL ONE (09:56)
[2020-06-09] MEDS ORDERED: 0.9 % Sodium Chloride 1,000 ML ONE (09:56)
[2020-06-09] MEDS ORDERED: ISOVUE-370 200 ML INFUS..BTL ONE ×2 (09:57)
[2020-06-09] MEDS ORDERED: Nitroglycerin 1,000 MCG/10 ML VIAL IV ONE (09:57)
[2020-06-09] MEDS ORDERED: Perflutren Lipid Microsphere 1.3 ML in 0.9 % Sodium Chloride 8.7 ML IVP PRN (10:30)
[2020-06-09] MEDS: 0.9 % Sodium Chloride 1,000 ML IVC SCH (14:26)
[2020-06-09] MEDS ORDERED: Acetaminophen 325 MG TABLET PO PRN (20:23)
[2020-06-09] MEDS ORDERED: Ondansetron ODT 4 MG TAB.RAPDIS SL PRN (20:24)
[2020-06-09] MEDS: *HR* Ticagrelor 90 MG TABLET PO SCH (20:33)
[2020-06-10] MEDS: 0.9 % Sodium Chloride 1,000 ML IVC SCH (00:45)
[2020-06-10 05:41] LABS: Hematocrit 41.9 % (37.5-50.1)
[2020-06-10 06:11] LABS: BUN/Creatinine Ratio 14 (6-26); Blood Urea Nitrogen 11 mg/dL (8-23); Troponin I 22.65 ng/mL (< 0.04); eGFR For African Americans > 60 (> 60); eGFR For Non-African Americans > 60 (> 60)
[2020-06-10] MEDS: Aspirin Enteric Coated 81 MG Tablet PO SCH (07:46)
[2020-06-10] MEDS: *HR* Ticagrelor 90 MG TABLET PO SCH ×2 (07:46→23:11)
[2020-06-10] MEDS: lisinopriL 20 MG TABLET PO SCH (10:34)
[2020-06-10] MEDS ORDERED: Fluticasone Propionate Nasal 50 MCG/SPRAY BOTTLE NS PRN (11:38)
[2020-06-10] MEDS: Spironolactone 25 MG TABLET PO SCH (12:46)
[2020-06-10 13:53] LABS: BUN/Creatinine Ratio 16 (6-26); Blood Urea Nitrogen 14 mg/dL (8-23); Calcium 8.7 mg/dL (8.6-10.3); Carbon Dioxide 22 mEq/L (23-29); Chloride 107 mEq/L (98-107); Glucose 147 mg/dL (70-105); Osmolality,Calculated 287 (280-300); Potassium 3.8 mEq/L (3.5-5.1); Sodium 137 mEq/L (136-145); eGFR For African Americans > 60 (> 60); eGFR For Non-African Americans > 60 (> 60)
[2020-06-10] MEDS ORDERED: Cholecalciferol (D-3) 1,000 UNIT (25MCG) TABLET PO SCH (15:00)
[2020-06-10] MEDS ORDERED: Potassium Citrate 10 MEQ TABLET.ER PO SCH (15:00)
[2020-06-10] MEDS: carvediloL 6.25 MG TABLET PO SCH (15:56)
[2020-06-11 01:58] LABS: Basophils # 0.1 K/mcL (0.0-0.2); Basophils % 0.6 %; Eosinophils # 0.1 K/mcL (0.0-0.6); Eosinophils % 1.6 %; Hemoglobin 12.5 g/dL (12.9-16.9); Immature Granulocytes % 0.2 % (0-4); Lymphocytes # 1.8 K/mcL (0.6-4.6); Lymphocytes % 21.5 %; Mean Corpuscular HGB Conc 32.9 g/dL (31.6-35.5); Mean Corpuscular Hemoglobin 29.7 pg (28.0-33.3); Mean Corpuscular Volume 90.3 fL (83.0-100.0); Mean Platelet Volume 9.8 fL (9.4-12.4); Monocytes # 0.8 K/mcL (0.0-1.3); Monocytes % 9.3 %; Neutrophils # 5.6 K/mcL (1.6-8.9); Platelet Count 168 K/mcL (140-400); Red Blood Count 4.21 M/mcL (4.19-5.50); Red Cell Distribution Width 13.2 % (11.5-14.5); Segmented Neutrophils % 66.8 %; White Blood Count 8.3 K/mcL (4.3-11.1)
[2020-06-11 02:19] LABS: BUN/Creatinine Ratio 15 (6-26); Blood Urea Nitrogen 17 mg/dL (8-23); Calcium 8.5 mg/dL (8.6-10.3); Carbon Dioxide 23 mEq/L (23-29); Chloride 106 mEq/L (98-107); Glucose 117 mg/dL (70-105); Osmolality,Calculated 287 (280-300); Potassium 3.8 mEq/L (3.5-5.1); Sodium 137 mEq/L (136-145); eGFR For African Americans > 60 (> 60); eGFR For Non-African Americans > 60 (> 60)
[2020-06-11 07:14] VITALS: BP 143/87
[2020-06-11] MEDS: *HR* Ticagrelor 90 MG TABLET PO SCH (09:48)
[2020-06-11] MEDS: Spironolactone 25 MG TABLET PO SCH (09:48)
[2020-06-11] MEDS: carvediloL 6.25 MG TABLET PO SCH (09:48)
[2020-06-11] MEDS: lisinopriL 20 MG TABLET PO SCH (09:49)
[2020-06-11] MEDS: Aspirin Enteric Coated 81 MG Tablet PO SCH (09:49)
== END 2020-06-11 12:36 | disposition home or self-care (01) | DRG 246 ==
LOC: CDU → ICNU 12:00 → 2ANU 06-10 20:48
PROVIDERS: ADMIT Internal Medicine Cardiovascular Disease; ATTEND Internal Medicine Cardiovascular Disease

== ENCOUNTER 2020-06-25 15:04 | Inpatient (IN) ==
[2020-06-25] MEDS ORDERED: Ondansetron ODT 4 MG TAB.RAPDIS SL PRN (17:24)
[2020-06-25] MEDS ORDERED: Naloxone 0.4 MG/ML INJ IVP PRN (17:24)
[2020-06-25] MEDS ORDERED: 0.9 % Sodium Chloride 1,000 ML IVC SCH (18:45)
[2020-06-25 20:18] LABS: Basophils # 0.1 K/mcL (0.0-0.2); Basophils % 0.7 %; Eosinophils % 0.1 %; Hematocrit 29.5 % (37.5-50.1); Immature Granulocytes % 0.1 % (0-4); Lymphocytes # 2.1 K/mcL (0.6-4.6); Mean Corpuscular HGB Conc 32.9 g/dL (31.6-35.5); Mean Corpuscular Hemoglobin 29.6 pg (28.0-33.3); Mean Corpuscular Volume 89.9 fL (83.0-100.0); Mean Platelet Volume 10.2 fL (9.4-12.4); Monocytes # 0.5 K/mcL (0.0-1.3); Monocytes % 6.7 %; Neutrophils # 4.8 K/mcL (1.6-8.9); Platelet Count 216 K/mcL (140-400); Red Blood Count 3.28 M/mcL (4.19-5.50); Red Cell Distribution Width 12.9 % (11.5-14.5); Segmented Neutrophils % 64.4 %; White Blood Count 7.5 K/mcL (4.3-11.1)
[2020-06-25 20:20] LABS: Hemoglobin 9.7 g/dL (12.9-16.9); INR 1.3; Prothrombin Time 14.8 Seconds (9.4-12.1)
[2020-06-25 20:23] LABS: Activated Partial Thrombo Time 26.3 Seconds (26.0-36.0)
[2020-06-25 20:34] LABS: Alanine Aminotransferase 11 Units/L (7-52); Albumin 3.6 g/dL (3.5-5.7); Albumin/Globulin Ratio 1.4 (1.1-2.2); Alkaline Phosphatase 53 Units/L (34-104); Aspartate Amino Transferase 11 Units/L (13-39); BUN/Creatinine Ratio 38 (6-26); Bilirubin,Total 1.2 mg/dL (0.3-1.0); Blood Urea Nitrogen 40 mg/dL (8-23); Calcium 8.3 mg/dL (8.6-10.3); Carbon Dioxide 24 mEq/L (23-29); Chloride 110 mEq/L (98-107); Globulin 2.5 g/dL (2.4-3.5); Glucose 130 mg/dL (70-105); Osmolality,Calculated 302 (280-300); Potassium 3.7 mEq/L (3.5-5.1); Sodium 140 mEq/L (136-145); Total Protein 6.1 g/dL (6.4-8.9); eGFR For African Americans > 60 (> 60); eGFR For Non-African Americans > 60 (> 60)
[2020-06-25] MEDS: *HR* Ticagrelor 90 MG TABLET PO SCH (22:17)
[2020-06-25] MEDS: carvediloL 6.25 MG TABLET PO SCH (22:17)
[2020-06-26 01:21] LABS: Hematocrit 27.6 % (37.5-50.1); Mean Corpuscular HGB Conc 32.6 g/dL (31.6-35.5); Mean Corpuscular Hemoglobin 29.6 pg (28.0-33.3); Mean Corpuscular Volume 90.8 fL (83.0-100.0); Mean Platelet Volume 10.3 fL (9.4-12.4); Platelet Count 213 K/mcL (140-400); Red Blood Count 3.04 M/mcL (4.19-5.50); White Blood Count 7.8 K/mcL (4.3-11.1)
[2020-06-26 01:39] LABS: BUN/Creatinine Ratio 33 (6-26); Blood Urea Nitrogen 39 mg/dL (8-23); Calcium 8.3 mg/dL (8.6-10.3); Carbon Dioxide 23 mEq/L (23-29); Chloride 111 mEq/L (98-107); Glucose 139 mg/dL (70-105); Osmolality,Calculated 306 (280-300); Potassium 3.2 mEq/L (3.5-5.1); Sodium 142 mEq/L (136-145); eGFR For African Americans > 60 (> 60); eGFR For Non-African Americans > 60 (> 60)
[2020-06-26] MEDS ORDERED: carvediloL 6.25 MG TABLET PO SCH (08:00)
[2020-06-26] MEDS: carvediloL 6.25 MG TABLET PO SCH ×2 (08:01→17:35)
[2020-06-26] MEDS: *HR* Ticagrelor 90 MG TABLET PO SCH ×2 (08:01→22:11)
[2020-06-26 08:26] LABS: Hematocrit 27.2 % (37.5-50.1)
[2020-06-26] MEDS ORDERED: Aspirin Enteric Coated 81 MG Tablet PO SCH (09:00)
[2020-06-26] MEDS: Aspirin Enteric Coated 81 MG Tablet PO SCH (10:25)
[2020-06-26] MEDS: cephALEXin 250 MG CAPSULE PO SCH ×3 (10:26→22:11)
[2020-06-27 02:50] LABS: Hematocrit 24.4 % (37.5-50.1); Hemoglobin 8.1 g/dL (12.9-16.9); Mean Corpuscular HGB Conc 33.2 g/dL (31.6-35.5); Mean Corpuscular Hemoglobin 30.6 pg (28.0-33.3); Mean Corpuscular Volume 92.1 fL (83.0-100.0); Mean Platelet Volume 10.3 fL (9.4-12.4); Platelet Count 175 K/mcL (140-400); Red Blood Count 2.65 M/mcL (4.19-5.50); Red Cell Distribution Width 13.2 % (11.5-14.5); White Blood Count 6.3 K/mcL (4.3-11.1)
[2020-06-27 03:08] LABS: BUN/Creatinine Ratio 22 (6-26); Blood Urea Nitrogen 25 mg/dL (8-23); Calcium 8.3 mg/dL (8.6-10.3); Carbon Dioxide 23 mEq/L (23-29); Chloride 113 mEq/L (98-107); Glucose 113 mg/dL (70-105); Osmolality,Calculated 299 (280-300); Potassium 3.7 mEq/L (3.5-5.1); Sodium 142 mEq/L (136-145); eGFR For African Americans > 60 (> 60); eGFR For Non-African Americans > 60 (> 60)
[2020-06-27] MEDS: cephALEXin 250 MG CAPSULE PO SCH ×3 (09:50→21:45)
[2020-06-27] MEDS: Furosemide 40 MG TABLET PO SCH (09:50)
[2020-06-27] MEDS: carvediloL 6.25 MG TABLET PO SCH ×2 (09:50→18:00)
[2020-06-27] MEDS: *HR* Ticagrelor 90 MG TABLET PO SCH ×2 (09:50→21:45)
[2020-06-27] MEDS: Aspirin Enteric Coated 81 MG Tablet PO SCH (09:50)
[2020-06-27] MEDS: Spironolactone 25 MG TABLET PO SCH (09:50)
[2020-06-27] MEDS: lisinopriL 20 MG TABLET PO SCH (09:50)
[2020-06-27 14:50] LABS: Hematocrit 29.4 % (37.5-50.1); Hemoglobin 9.1 g/dL (12.9-16.9)
[2020-06-28] MEDS: Spironolactone 25 MG TABLET PO SCH (08:24)
[2020-06-28] MEDS: carvediloL 6.25 MG TABLET PO SCH ×2 (08:24→15:29)
[2020-06-28] MEDS: lisinopriL 20 MG TABLET PO SCH (08:25)
[2020-06-28] MEDS: *HR* Ticagrelor 90 MG TABLET PO SCH ×2 (08:25→20:13)
[2020-06-28] MEDS: cephALEXin 250 MG CAPSULE PO SCH ×3 (08:25→20:13)
[2020-06-28] MEDS: Aspirin Enteric Coated 81 MG Tablet PO SCH (08:25)
[2020-06-28] MEDS: Furosemide 40 MG TABLET PO SCH (08:25)
[2020-06-28 10:15] LABS: Hematocrit 26.9 % (37.5-50.1); Hemoglobin 8.9 g/dL (12.9-16.9); Mean Corpuscular HGB Conc 33.1 g/dL (31.6-35.5); Mean Corpuscular Hemoglobin 30.5 pg (28.0-33.3); Mean Corpuscular Volume 92.1 fL (83.0-100.0); Mean Platelet Volume 10.4 fL (9.4-12.4); Platelet Count 202 K/mcL (140-400); Red Blood Count 2.92 M/mcL (4.19-5.50); Red Cell Distribution Width 13.2 % (11.5-14.5); White Blood Count 6.5 K/mcL (4.3-11.1)
[2020-06-28 10:37] LABS: BUN/Creatinine Ratio 16 (6-26); Blood Urea Nitrogen 16 mg/dL (8-23); Calcium 8.7 mg/dL (8.6-10.3); Carbon Dioxide 24 mEq/L (23-29); Chloride 108 mEq/L (98-107); Glucose 132 mg/dL (70-105); Osmolality,Calculated 293 (280-300); Potassium 3.5 mEq/L (3.5-5.1); Sodium 140 mEq/L (136-145); eGFR For African Americans > 60 (> 60); eGFR For Non-African Americans > 60 (> 60)
[2020-06-28] MEDS ORDERED: SODIUM CHLORIDE/NAHCO3/KCL/PEG 4,000 ML SOLN.RECON GTUBE ONE (14:50)
[2020-06-28] MEDS ORDERED: SODIUM CHLORIDE/NAHCO3/KCL/PEG 4,000 ML SOLN.RECON PO ONE (15:30)
[2020-06-29 02:22] LABS: Hematocrit 23.9 % (37.5-50.1); Mean Corpuscular HGB Conc 33.5 g/dL (31.6-35.5); Mean Corpuscular Hemoglobin 30.8 pg (28.0-33.3); Mean Corpuscular Volume 91.9 fL (83.0-100.0); Mean Platelet Volume 10.4 fL (9.4-12.4); Platelet Count 180 K/mcL (140-400); Red Cell Distribution Width 13.2 % (11.5-14.5); White Blood Count 6.3 K/mcL (4.3-11.1)
[2020-06-29] MEDS: Spironolactone 25 MG TABLET PO SCH (08:27)
[2020-06-29] MEDS: *HR* Ticagrelor 90 MG TABLET PO SCH ×2 (08:27→21:37)
[2020-06-29] MEDS: Aspirin Enteric Coated 81 MG Tablet PO SCH (08:27)
[2020-06-29] MEDS: lisinopriL 20 MG TABLET PO SCH (08:27)
[2020-06-29] MEDS: cephALEXin 250 MG CAPSULE PO SCH ×3 (08:28→21:37)
[2020-06-29] MEDS: Furosemide 40 MG TABLET PO SCH (08:28)
[2020-06-29] MEDS: carvediloL 6.25 MG TABLET PO SCH ×2 (08:28→15:19)
[2020-06-30 02:36] LABS: Hematocrit 24.8 % (37.5-50.1); Hemoglobin 8.3 g/dL (12.9-16.9)
[2020-06-30 07:16] VITALS: BP 162/83
[2020-06-30] MEDS: Furosemide 40 MG TABLET PO SCH (09:59)
[2020-06-30] MEDS: lisinopriL 20 MG TABLET PO SCH (09:59)
[2020-06-30] MEDS: carvediloL 6.25 MG TABLET PO SCH (09:59)
[2020-06-30] MEDS: Spironolactone 25 MG TABLET PO SCH (09:59)
[2020-06-30] MEDS: *HR* Ticagrelor 90 MG TABLET PO SCH (09:59)
[2020-06-30] MEDS: Aspirin Enteric Coated 81 MG Tablet PO SCH (09:59)
[2020-06-30] MEDS: cephALEXin 250 MG CAPSULE PO SCH (09:59)
== END 2020-06-30 14:22 | disposition home or self-care (01) | DRG 150 ==
LOC: 3BNU → SUATTDRO 16:59
PROVIDERS: ADMIT Family Medicine; ATTEND Family Medicine